=== PATIENT | female | born 1970 | race African-American/Black ===

== ENCOUNTER 2016-07-03 16:45 | Emergency (ER) | payer SELFPAY | END 2016-07-03 18:39 | disposition home or self-care (01) | LOC: D.ER 16:45 | DX: S50.02XA Contusion of left elbow, initial encounter (principal); W22.8XXA Striking against or struck by other objects, initial encounter; Y93.89 Activity, other specified; Y92.012 Bathroom of single-family (private) house as the place of occurrence of the external cause; I10 Essential (primary) hypertension ==

== ENCOUNTER 2016-10-31 23:11 | Emergency (ER) | payer SELFPAY | END 2016-11-01 00:20 | disposition home or self-care (01) | LOC: D.ER 23:11 | DX: J20.9 Acute bronchitis, unspecified (principal); I10 Essential (primary) hypertension ==

== ENCOUNTER 2016-12-31 13:59 | Emergency (ER) | payer SELFPAY | END 2016-12-31 14:39 | disposition home or self-care (01) | LOC: D.ER 13:59 | DX: M54.30 Sciatica, unspecified side (principal); M62.838 Other muscle spasm; M54.5 Low back pain ==

== ENCOUNTER 2017-07-30 07:27 | Emergency (ER) | payer SELFPAY | END 2017-07-30 08:11 | disposition home or self-care (01) | LOC: D.ER 07:27 | DX: M54.16 Radiculopathy, lumbar region (principal); J45.909 Unspecified asthma, uncomplicated; I10 Essential (primary) hypertension ==